=== PATIENT | male | born 1975 | race Two or more races ===

== ENCOUNTER 2024-01-15 08:43 | Emergency (ER) | payer OTHER ==
[~2024-01-15] VITALS: Ht 172.7 cm; Wt 75.0 kg
[2024-01-15 09:32] VITALS: BP 142/98; PULSE 123; RESP 16; TEMP 99.3; O2SAT 100
[2024-01-15] MEDS ORDERED: TRAM-626 PO (10:22)
== END 2024-01-15 10:31 | disposition home or self-care (01) ==
LOC: ER 08:43
DX: M54.50 Low back pain, unspecified (principal); M13.811 Other specified arthritis, right shoulder; Z76.0 Encounter for issue of repeat prescription